=== PATIENT | male | born 1970 | race Caucasian/White ===

== ENCOUNTER → 2016-12-08 | Outpatient (CLI) | payer SELFPAY ==
[2016-12-08 12:11] LABS: CHLORIDE,CL 104 mmol/L (98-110); SODIUM,NA 139 mmol/L (136-146)
== END ==
LOC: MW.CHIM 11:20
PROVIDERS: ATTEND Internal Medicine
DX: R10.9 Unspecified abdominal pain (principal); F41.9 Anxiety disorder, unspecified
CPT/HCPCS: 36415; 80053; 80061; 84443; 85025

== ENCOUNTER 2017-01-19 09:38 | Day surgery (SDC) | payer SELFPAY ==
[~2017-01-19 09:38] MED LIST: Lactated Ringers 1,000 ML IV SCH; Midazolam 1 MG/ML 2 ML SDV ONE; Propofol 200 MG/20 ML SDV ONE; fentaNYL 100 MCG/2 ML SDV ONE
--- NOTE | 2017-01-19 10:06 | PCM.PREANE ---
Preanesthetic Assessment - Procedure Proposed Procedure: EGD and Colonoscopy - Anesthesia/Transfusion/Family Hx Anesthesia History: No Prior Anesthesia Transfusion History: No Prior Transfusion(s) Intubation History: Unknown - Review of Systems General: No Symptoms Pulmonary: No Symptoms, Other (smoker) Cardiovascular: No Symptoms Gastrointestinal: Abdominal pain Neurological: No Symptoms Other: Reports: Anxiety - Physical Assessment Height: 5 ft 7 in Weight: 131 lb ASA Class: 2 Mental Status: Alert & Oriented x3 Airway Class: Mallampati = 1 Dentition: Reports: Normal Dentition, Broken Tooth/Teeth (right lower molar) Thyro-Mental Finger Breadths: 3 Mouth Opening Finger Breadths: 3 ROM/Head Extension: Full Lungs: Clear to auscultation, Normal respiratory effort Cardiovascular: Regular Rate, Regular Rhythm, No Murmurs - Allergies Allergies/Adverse Reactions: Allergies Allergy/AdvReac Type Severity Reaction Status Date / Time No Known Allergies Allergy Verified 08/06/14 11:35 - Blood Blood Available: No Product(s) Available: None - Anesthesia Plan Pre-Op Medication Ordered: None - Acknowledgements Anesthesia Type Planned: MAC Pt an Appropriate Candidate for the Planned Anesthesia: Yes Alternatives and Risks of Anesthesia Discussed w Pt/Guardian: Yes Pt/Guardian Understands and Agrees with Anesthesia Plan: Yes PreAnesthesia Questionnaire - Past Health History Medical/Surgical History: Denies Medical/Surgical History HEENT History: Reports: Other (see below) Other HEENT History: wears glasses Gastrointestinal History: Reports: Other (see below) Other Gastrointestinal History: occasional heartburn, left sided abd pain at present Musculoskeletal History: Reports: Fracture, Other (see below) Other Musculoskeletal History: hx fx shoulder (no surgery), spinal stenosis to neck Psychiatric History: Reports: Anxiety - Past Surgical History Head Surgeries/Procedures: Reports: None - SUBSTANCE USE Smoking Status *Q: Current Every Day Smoker Days Per Week of Alcohol Use: 0 Recreational Drug Use History: No - HOME MEDS Home Medications: Home Meds . [No Known Home Meds] 08/06/14 [History] - CURRENT (IN HOUSE) MEDS Current Meds: Current Medications Lactated Ringer's (Ringers, Lactated) 1,000 mls @ 125 mls/hr IV ASDIRECTED CATERINA Discontinued Medications Fentanyl (Sublimaze) Confirm Administered Dose 100 mcg .ROUTE .STK-MED ONE Stop: 04/11/17 07:22 Midazolam HCl (Versed 1 Mg/Ml) Confirm Administered Dose 2 mg .ROUTE .STK-MED ONE Stop: 01/19/17 07:22 Propofol (Diprivan 20 Ml) Confirm Administered Dose 200 mg .ROUTE .STK-MED ONE Stop: 01/19/17 07:22 Preanesthetic Assessment - ANESTHESIA/TRANSFUSION/FAMILY HX Family History of Anesthesia Reaction: No - PHYSICAL ASSESSMENT Height: 5 ft 7 in Weight: 131 lb - ALLERGIES Allergies/Adverse Reactions: Allergies Allergy/AdvReac Type Severity Reaction Status Date / Time No Known Allergies Allergy Verified 08/06/14 11:35
[2017-01-19] MEDS ORDERED: Propofol 200 MG/20 ML SDV ONE (10:12)
--- NOTE | 2017-01-19 10:50 | PCM.OPNOTE ---
- General Post-Op/Procedure Note Date of Surgery/Procedure: 01/19/17 Operative Procedure(s): egd w bx; and colonoscopy Findings: see dict [id number] Pre Op Diagnosis: gib and abd pain Post-Op Diagnosis: Same Anesthesia Technique: Moderate sedation Primary Surgeon: Jesus Espinoza Pathology: egd bx Complications: None Condition: Good
--- NOTE | 2017-01-19 11:28 | PCM.POSTAN ---
POST ANESTHESIA ASSESSMENT - MENTAL STATUS Mental Status: alert, oriented - RESPIRATORY Respiratory Status: respiratory rate WNL, airway patent - CARDIOVASCULAR CV Status: pulse rate WNL, blood pressure stable - GASTROINTESTINAL GI Status: no symptoms - POST OP HYDRATION Hydration Status: adequate & stable
--- NOTE | 2017-01-19 11:29 | PCM48HPAN ---
Post Anesthesia Note - EVALUATION WITHIN 48HRS OF ANESTHETIC Vital Signs in Normal Range: Yes Patient Participated in Evaluation: Yes Respiratory Function Stable: Yes Airway Patent: Yes Cardiovascular Function Stable: Yes Hydration Status Stable: Yes Pain Control Satisfactory: Yes Nausea and Vomiting Control Satisfactory: Yes Mental Status Recovered: Yes
[2017-01-19 11:44] VITALS: BP 119/81
--- NOTE | 2017-01-19 16:55 | OR ---
SURGEON: Jesus Espinoza MD DATE OF PROCEDURE: 01/19/2017 PREOPERATIVE DIAGNOSIS: GI bleeding, abdominal pain. POSTOPERATIVE DIAGNOSIS: Gastritis and hemorrhoids. PROCEDURE PERFORMED: EGD with biopsy and colonoscopy. DESCRIPTION OF PROCEDURE: EGD: The patient was taken to the endoscopy room, and with the BEHAVIORAL MEDICAL DIRECTOR, Diprivan was administered. A well-lubricated EGD scope was gently inserted through the oropharynx, down the esophagus, passing through the gastroesophageal junction, into the stomach. The mucosa was examined upon the passage. Any etiology will be noted. Once in the stomach, we continued to advance to the distal antrum, passed through the pylorus into the second portion of the duodenum. Again, the mucosa was examined for any abnormality and etiology. The scope was then retrieved back to the stomach and then retroflexed to look at the fundus of the stomach. If a biopsy was indicated, we will biopsy the antrum, body, and gastroesophageal junction. The air will be sucked out while the scope is retrieved to reduce the patient's discomfort. The patient tolerated the procedure well. There were no intraoperative complications. Dr. Espinoza was present through the whole procedure. Prior to surgery, a time-out had been called, the patient identified, procedure identified and antibiotic administered. Colonoscopy: The patient was taken to the endoscopy room. A time out was called, patient identified, and procedure identified. Diprivan was then administrated. Patient went from awake to sleep, hearing doctor talking or door closing is normal. Perineum inspection and digital examination were then performed. A well- lubricated colonoscope was gently inserted through the rectum, advanced past the rectosigmoid junction, the descending colon, splenic flexure, transverse colon, hepatic flexure, ascending colon, arrived to the cecum. Cecum was identified as dictated in the finding. Then the scope was carefully withdrawn while attention was paid to the mucosal surface for any abnormality. Air will be sucked out during the scope withdrawal. At the rectum, retroflexed to examine any rectal diseases, fistula or hemorrhoids. Patient tolerated procedure well. There were no intraoperative complications, and Dr. Espinoza was present throughout the whole procedure. FINDINGS: EGD findings: 1. Patient usually sedated by BEHAVIORAL MEDICAL DIRECTOR and Diprivan. 2. The patient was found to be snoring. 3. Oropharynx and proximal esophagus is free of disease and no inflammation, stricture, ulceration, bleeding. 4. Distal esophagus at 40 cm, shows salmon color change, consistent with acid reflux, GERD. 5. Stomach rugae is normal in appearance. There is a little bit bile not a lot and some water, no food particle. 6. Antrum has some scattered specks of blood. It is not from the stomach and otherwise it was very inflamed but no yoselin ulcer. 7. Duodenum was grossly normal in appearance. 8. The scope retrieved back to the stomach. Retroflexed look of the fundus, stomach, and there is no hiatal hernia. 9. Biopsy done at antrum, body, and GE junction at 40 and sucked out the air while scope was being pulled out. Colonoscopy Findings: 1. The patient usually sedated with BEHAVIORAL MEDICAL DIRECTOR and Diprivan. 2. The patient found snoring. 3. Bowel prep was average to good, very little liquid stool. Colon was quite redundant. 4. Colon was quite redundant at the sigmoid requiring several maneuvers in order to see the cecum. 5. Cecum is indicated by ileocecal fold, one-to-one indentation, and light emittance. 6. Appendix orifice was not observed. 7. Mucosa examined upon scope pulling out and the patient does not have diverticulosis, mass, polyp, inflammation, stricture, ulceration bleeding, none of those. 8. The patient has mild internal hemorrhoids and mild external hemorrhoids. The patient would benefit from repeat colonoscopy 10 years from today or if clinically indicated otherwise. KYRIE / JUSTYNA /[id number]
== END 2017-01-19 11:25 | disposition home or self-care (01) ==
LOC: MW.SDS 09:38
PROVIDERS: ATTEND Surgery
PROC: 0DB48ZX Excision of Esophagogastric Junction, Via Natural or Artificial Opening Endoscopic, Diagnostic (ICD-10-PCS; principal; 2017-01-19)
PROC: 0DB68ZX Excision of Stomach, Via Natural or Artificial Opening Endoscopic, Diagnostic (ICD-10-PCS; 2017-01-19)
PROC: 0DJD8ZZ Inspection of Lower Intestinal Tract, Via Natural or Artificial Opening Endoscopic (ICD-10-PCS; 2017-01-19)
DX: K29.50 Unspecified chronic gastritis without bleeding (principal); K20.9 Esophagitis, unspecified; K21.9 Gastro-esophageal reflux disease without esophagitis; K64.9 Unspecified hemorrhoids; F17.200 Nicotine dependence, unspecified, uncomplicated; F41.9 Anxiety disorder, unspecified; Z79.899 Other long term (current) drug therapy
CPT/HCPCS: 43239; 45378; 88305; 88312; J2250; J3010; J7120; 00740; J2704

== ENCOUNTER → 2017-02-04 | Outpatient (CLI) | payer SELFPAY ==
--- NOTE | 2017-02-04 16:39 | US ---
EXAM DATE: 02/01/17 PATIENT'S AGE: 46 Patient: MITALI CHAMBERS Facility: [place], [place] Site . Site : [id number] Study: US Abdomen [id number]/27/2017 12:50:36 PM Ordering Physician: Olga Lee Final Report: HISTORY: Abdominal pain. Right upper quadrant, left lower quadrant. Comparison: None. Technique: Ultrasound of the abdomen limited. Findings: The pancreas is normal where visualized. No peripancreatic fluid collections. IVC and abdominal aorta are normal on grayscale imaging. There is no solid hepatic mass. There is no intrahepatic biliary dilatation. No perihepatic ascites. Right kidney measures 10.6 cm in length. No hydronephrosis. No perinephric fluid collection. The gallbladder lumen is anechoic. No pericholecystic fluid. No gallbladder wall thickening. No dilation of intrahepatic biliary radicals. The extrahepatic common duct measures 3 mm at the nayana hepatis. The left kidney measures 10.5 cm in length. There is no hydronephrosis or perinephric edema. Spleen measures 8.6 cm in length. It is of normal echogenicity and echotexture. Impression: No findings are seen to explain the patient`s symptoms. Dictated by Shabbir Benz MD @ Feb 04 2017 4:13PM (Electronic Signature) Report Signed by Proxy. CLARY
== END ==
LOC: MW.US 11:39
PROVIDERS: ATTEND Surgery
DX: R10.9 Unspecified abdominal pain (principal)
CPT/HCPCS: 76705; 76705-26

== ENCOUNTER 2020-05-23 12:20 | Day surgery (SDC) | payer SELFPAY ==
[~2020-05-23 12:20] MED LIST changes: +50% Dextrose in Water 50 ML Syringe IVPUSH PRN; +Albuterol 0.083% 2.5 MG/3 ML Neb Soln NEB PRN; +Atropine 0.1 MG/ML 10 ML Syringe IVPUSH PRN; +EPINEPHrine 1:10,000 1 MG/10 ML Syringe IVPUSH PRN; +Naloxone 0.4 MG/ML Syringe IVPUSH PRN; +Sodium Chloride 0.9% 10 ML SDV IV PRN; +Sodium Chloride 0.9% 10 ML Syringe FLUSH PRN; +Sodium Chloride 0.9% 2.5 ML Syringe FLUSH PRN; +fentaNYL 50 MCG/ML SDV IVPUSH PRN
--- NOTE | 2020-05-23 13:20 | PCM.PREANE ---
Preanesthetic Assessment - Anesthesia/Transfusion/Family Hx Anesthesia History: Prior Anesthesia Without Reaction Family History of Anesthesia Reaction: No Transfusion History: No Prior Transfusion(s) Intubation History: Unknown - Review of Systems General: No Symptoms Pulmonary: No Symptoms Cardiovascular: No Symptoms Gastrointestinal: No Symptoms Neurological: No Symptoms Other: Reports: None - Physical Assessment Vital Signs: Last Vital Signs Temp 36.1 C 05/23/20 12:45 Pulse 94 05/23/20 12:45 Resp 16 05/23/20 12:45 BP 135/78 05/23/20 12:45 Pulse Ox 98 05/23/20 12:45 Height: 5 ft 7 in Weight: 65.771 kg ASA Class: 2 Mental Status: Alert & Oriented x3 Airway Class: Mallampati = 2 Dentition: Reports: Normal Dentition Thyro-Mental Finger Breadths: 3 Mouth Opening Finger Breadths: 3 ROM/Head Extension: Full Lungs: Clear to Auscultation, Normal Respiratory Effort Cardiovascular: Regular Rate, Regular Rhythm - Allergies Allergies/Adverse Reactions: Allergies Allergy/AdvReac Type Severity Reaction Status Date / Time No Known Allergies Allergy Verified 05/23/20 12:47 - Blood Blood Available: No - Anesthesia Plan Pre-Op Medication Ordered: None - Acknowledgements Anesthesia Type Planned: General Anesthesia Pt an Appropriate Candidate for the Planned Anesthesia: Yes Alternatives and Risks of Anesthesia Discussed w Pt/Guardian: Yes Pt/Guardian Understands and Agrees with Anesthesia Plan: Yes PreAnesthesia Questionnaire - Past Health History Medical/Surgical History: Denies Medical/Surgical History HEENT History: Reports: Other (See Below) Other HEENT History: wears glasses Cardiovascular History: Reports: None Respiratory History: Reports: None Gastrointestinal History: Reports: None Genitourinary History: Reports: None Musculoskeletal History: Reports: Fracture, Neck Pain, Chronic, Other (See Below) Other Musculoskeletal History: hx fx shoulder (on xray-no surgery), spinal stenosis to neck Neurological History: Reports: Other (See Below) (fine tremor) Psychiatric History: Reports: Anxiety, Depression Endocrine/Metabolic History: Reports: None Hematologic History: Reports: None Immunologic History: Reports: None Oncologic (Cancer) History: Reports: None Dermatologic History: Reports: None - Past Surgical History Head Surgeries/Procedures: Reports: None HEENT Surgical History: Reports: None Cardiovascular Surgical History: Reports: None Respiratory Surgical History: Reports: None GI Surgical History: Reports: Colonoscopy, EGD Male Surgical History: Reports: None Endocrine Surgical History: Reports: None Neurological Surgical History: Reports: None Musculoskeletal Surgical History: Reports: None Oncologic Surgical History: Reports: None Dermatological Surgical History: Reports: None - SUBSTANCE USE Smoking Status *Q: Current Every Day Smoker (2ppd) Tobacco Use Within Last Twelve Months: Cigarettes Days Per Week of Alcohol Use: 7 Number of Drinks Per Day: 2 Total Drinks Per Week: 14 Recreational Drug Use History: No - HOME MEDS Home Medications: Home Meds Doxylamine Succinate [Unisom Sleep Aid] 1 tab PO BEDTIME PRN 05/21/20 [History] Hydrocodone/Acetaminophen [Hydrocodon-Acetaminophen 5-325] 1 each PO DAILY PRN 05/23/20 [History] - CURRENT (IN HOUSE) MEDS Current Meds: Current Medications Albuterol (Proventil Neb Soln) 2.5 mg NEB ONETIME PRN PRN Reason: Wheezing Atropine Sulfate (Atropine 0.1 Mg/Ml) 0.5 mg IVPUSH ASDIRECTED PRN PRN Reason: Hypo-perfusion Atropine Sulfate (Atropine 0.1 Mg/Ml) 1 mg IVPUSH ASDIRECTED PRN PRN Reason: Hypo-Perfusion Dextrose/Water (Dextrose 50% In Water) 50 ml IVPUSH ASDIRECTED PRN PRN Reason: Hypoglycemia Epinephrine HCl (Epinephrine 1:10,000) 1 mg IVPUSH ASDIRECTED PRN PRN Reason: ACLS Guidelines Fentanyl (Fentanyl) 50 mcg IVPUSH Q5M PRN PRN Reason: Pain Lactated Ringer's (Ringers, Lactated) 1,000 mls @ 125 mls/hr IV ASDIRECTED CATERINA Last Admin: 05/23/20 12:46 Dose: 125 mls/hr Documented by: Naloxone HCl (Narcan) 0.1 mg IVPUSH ASDIRECTED PRN PRN Reason: Respiratory Depression Sodium Chloride (Saline Flush) 10 ml FLUSH ASDIRECTED PRN PRN Reason: Keep Vein Open Sodium Chloride (Saline Flush) 2.5 ml FLUSH ASDIRECTED PRN PRN Reason: Keep Vein Open Sodium Chloride (Normal Saline) 10 ml IV ASDIRECTED PRN PRN Reason: IV Use Discontinued Medications Fentanyl (Sublimaze) Confirm Administered Dose 200 mcg .ROUTE .STK-MED ONE Stop: 05/23/20 11:54 Lidocaine HCl (Xylocaine-Mpf 1%) Confirm Administered Dose 5 ml .ROUTE .STK-MED ONE Stop: 05/23/20 11:56 Midazolam HCl (Versed 1 Mg/Ml) Confirm Administered Dose 4 mg .ROUTE .STK-MED ONE Stop: 05/23/20 11:54 Propofol (Diprivan 20 Ml) Confirm Administered Dose 600 mg .ROUTE .STK-MED ONE Stop: 05/23/20 11:55
--- NOTE | 2020-05-23 14:39 | PCM48HPAN ---
Post Anesthesia Note - EVALUATION WITHIN 48HRS OF ANESTHETIC Vital Signs in Normal Range: Yes Patient Participated in Evaluation: Yes Respiratory Function Stable: Yes Airway Patent: Yes Cardiovascular Function Stable: Yes Hydration Status Stable: Yes Pain Control Satisfactory: Yes Nausea and Vomiting Control Satisfactory: Yes Mental Status Recovered: Yes Vital Signs: Last Vital Signs Temp 36.1 C 05/23/20 12:45 Pulse 94 05/23/20 12:45 Resp 16 05/23/20 12:45 BP 135/78 05/23/20 12:45 Pulse Ox 98 05/23/20 12:45 - COMMENTS/OBSERVATIONS Free Text/Narrative:: No anesthesia problems
--- NOTE | 2020-05-23 14:39 | PCM.POSTAN ---
POST ANESTHESIA ASSESSMENT - MENTAL STATUS Mental Status: Alert, Oriented - VITAL SIGNS Vital Signs: Last Vital Signs Temp 36.1 C 05/23/20 12:45 Pulse 94 05/23/20 12:45 Resp 16 05/23/20 12:45 BP 135/78 05/23/20 12:45 Pulse Ox 98 05/23/20 12:45 - RESPIRATORY Respiratory Status: Respiratory Rate WNL, Airway Patent, O2 Saturation Stable - CARDIOVASCULAR CV Status: Pulse Rate WNL, Blood Pressure Stable - GASTROINTESTINAL GI Status: No Symptoms - PAIN Pain Score: 0 - POST OP HYDRATION Hydration Status: Adequate & Stable - OBSERVATIONS Free Text/Narrative:: No anesthesia problems
[2020-05-23] MEDS ORDERED: Gadobenate Dimeglumine 529 MG/ML 20 ML SDV IVPUSH STA (14:45)
[2020-05-23 15:05] VITALS: BP 117/76; PULSE 76
--- NOTE | 2020-05-23 15:05 | MR ---
MRI cervical spine (without and with intravenous contrast) Technique: T2 and FFE axial images were obtained from above the C2-3 disc inferiorly through the posterior T1-2 disc. T1 postcontrast axial images were also obtained through the same levels. T1, T2 and fat-suppressed inversion recovery and T1 fat-suppressed postcontrast sagittal images were obtained. Comparison: No previous study. Comparison: No prior cervical spine imaging is available. Findings: C2-3: Posterior disc is preserved. No central canal stenosis or neural foraminal stenosis is seen. C3-4: Moderate disc space narrowing is seen. Mild posterior disc bulge is noted. No central canal stenosis is seen. Neural foramina are felt to be patent. C4-5: Severe disc space narrowing is seen. Mild diffuse posterior disc bulge is noted. No central canal stenosis is seen. Neural foramina are felt to be patent on the left side with very minimal right-sided neural foraminal stenosis being seen. C5-6: Posterior disc shows slight bulge to the midline. No central canal stenosis or neural foraminal stenosis is seen. C7-T1: Posterior disc is preserved. No central canal stenosis or neural foraminal stenosis is seen. T1-2 through T3-4: Posterior discs are preserved. No central canal stenosis or neural foraminal stenosis is seen. Cervical cord shows no abnormal signal or mass. No abnormal enhancement is seen within the cervical spine. Impression: 1. Mild degenerative change as noted above. Diagnostic code #2 This report was dictated in MDT
--- NOTE | 2020-05-23 15:20 | PCM.SN.2 ---
- Free Text/Narrative Note: Patient received 2 mg of versed and 50 mcg of fentanyl during transport to the MRI. He was able to communicate and transfer himself from the stretcher to the MRI bed with ease. Once the ASA monitors were applied. An additional 25 mcg of fentanyl was given. We were unable to get a BP reading. The patient was awak e, alert, oriented, and had a palpable pulse. He was in no acute distress, and cooperative. I informed the patient that no further sedation would be given because of the Blood Pressure is not working properly. Patient agreed with the plan. Throughout the procedure the other vitals were monitored continuously, and the patient was able to communicate appropriately throughout the case, and had a palpable pulse. Phase I Recovery was bypassed, and the patient went to Phase 2.
== END 2020-05-23 14:47 | disposition home or self-care (01) ==
LOC: MW.SDS 12:20 → EDSTATUS 13:30 → MW.SDS 14:47
PROVIDERS: ATTEND Registered Nurse
DX: M54.2 Cervicalgia (principal); M47.812 Spondylosis without myelopathy or radiculopathy, cervical region
CPT/HCPCS: 72156; A9577; J2250; J3010; J7120; 01922; J2001; J2704

== ENCOUNTER 2021-11-20 00:41 | Emergency (ER) | payer MEDICAID ==
[2021-11-20] MEDS ORDERED: Sodium Chloride 0.9% 2.5 ML Syringe FLUSH PRN (01:16)
[2021-11-20] MEDS ORDERED: Sodium Chloride 0.9% 10 ML Syringe FLUSH PRN (01:16)
[2021-11-20] MEDS ORDERED: Lactated Ringers 500 ML IV ONE (01:17)
[2021-11-20 01:51] LABS: BLOOD UREA NITROGEN,BUN 10 mg/dL (7.0-18.0); CARBON DIOXIDE,CO2 28.5 mmol/L (21.0-32.0); CHLORIDE,CL 103 mmol/L (98-107); GLUCOSE RANDOM 96 mg/dL (74-106); LIPASE 41 U/L (73-393); POTASSIUM,K 3.8 mmol/L (3.5-5.1); SODIUM,NA 142 mmol/L (136-148)
[2021-11-20 03:08] VITALS: BP 160/100; PULSE 81
== END 2021-11-20 03:06 | disposition home or self-care (01) ==
LOC: MW.ED 00:41
DX: F19.239 Other psychoactive substance dependence with withdrawal, unspecified (principal); I10 Essential (primary) hypertension; R11.2 Nausea with vomiting, unspecified; R51.9 Headache, unspecified
CPT/HCPCS: 80053; 80307; 83690; 83735; 85025; 96374; 96376; 99284-25; J3360; J7120